=== PATIENT | female | born 1955 | race Two or more races ===

== ENCOUNTER 2020-01-09 09:28 | Outpatient (CLI) | payer OTHER ==
[~2020-01-09] VITALS: Ht 162.6 cm; Wt 66.2 kg
--- NOTE | 2020-01-09 13:30 | Consultation ---
DATE OF CONSULTATION: 01/09/2020 CONSULTING PHYSICIAN: Jomar Rushing MD CHIEF COMPLAINT: Anemia. HISTORY OF PRESENT ILLNESS: This is a 64-year-old female with history of anemia, had an endoscopy and colonoscopy in 2018. I only have the endoscopy report, I do not have colonoscopy report. Endoscopy report showed evidence of 5 cm hiatal hernia with Dane ulceration, possibly the source of anemia. The concern was that the patient require another blood transfusion and was referred back to GI. The patient is not taking any PPI only as needed because she was told that she has osteoporosis and she should not take PPIs, but the patient denies any seeing melena, hematochezia, or any obvious GI bleeding. PAST MEDICAL HISTORY: 1. Anemia requiring blood transfusion. 2. GERD. 3. Hiatal hernia. 4. Dane ulcerations. 5. Osteoporosis. PAST SURGICAL HISTORY: Hernia repair. MEDICATIONS: Please see medication reconciliation list. FAMILY HISTORY: No family history of GI malignancies. SOCIAL HISTORY: The patient denies any tobacco, alcohol, or drug abuse. ALLERGIES: No known drug allergies. REVIEW OF SYSTEMS: As dictated in HPI. PHYSICAL EXAMINATION: VITAL SIGNS: Temperature 96.8, blood pressure 113/75, pulse rate 75, and respirations 20. HEENT: Normocephalic and atraumatic. Sclerae are anicteric. NECK: Supple. No evidence of obvious lymphadenopathy. CARDIOVASCULAR: Regular rate and rhythm. Plus S1-S2. LUNGS: Clear to auscultation bilaterally. ABDOMEN: Positive bowel sounds. Soft, nontender. No rebound. No guarding. No peritoneal sign. EXTREMITIES: No cyanosis. No clubbing. No edema. ASSESSMENT AND PLAN: This is a 64-year-old female with anemia, possibly secondary to Dane ulcerations. Plan will be to repeat endoscopy to see if the Dane ulcerations are still there and is causing the bleeding. We are going to also send the stool for FIT. After endoscopy, we will decide to resume the PPI or add Carafate for Dane ulcerations if that is the source of bleeding. If there is no Daen ulcerations and there is no evidence of any source for upper GI bleeding, we recommend the patient to have a capsule endoscopy if the FIT study comes back positive. Jomar Suraj Rushing DR: FAWN JOB#: [id number] CC:
[2020-01-09 14:52] VITALS: BP 139/75
[2020-01-09] MEDS ORDERED: FERROUS SULFAT325 MG ORAL (14:52)
[2020-01-09] MEDS ORDERED: FOSAMAX70 MG ORAL (14:52)
[2020-01-09] MEDS ORDERED: AMLODIPINE BES2.5 MG ORAL (14:52)
[2020-01-09] MEDS ORDERED: OMEPRAZOLE40 M1 ORAL (14:52)
[2020-01-09] MEDS ORDERED: COLACE100 MG ORAL (14:52)
== END 2020-01-09 11:28 | disposition home or self-care (01) ==
LOC: PAN 09:28
DX: D64.9 Anemia, unspecified (principal); K21.9 Gastro-esophageal reflux disease without esophagitis; M81.0 Age-related osteoporosis without current pathological fracture
CPT/HCPCS: G0463